=== PATIENT | female | born 1995 | race African-American/Black ===

== ENCOUNTER 2017-06-06 10:26 | Emergency (ER) | payer MEDICAID ==
[~2017-06-06] VITALS: Ht 149.9 cm; Wt 47.0 kg
[2017-06-06] MEDS ORDERED: IBUPROFEN 600MG TABLET PO STA (11:22)
[2017-06-06 13:42] VITALS: BP 107/60
== END 2017-06-06 13:30 | disposition home or self-care (01) ==
LOC: ER 10:37
DX: R05 Cough (principal); F12.10 Cannabis abuse, uncomplicated
CPT/HCPCS: 71045; 81025; 99283